=== PATIENT | male | born 1985 | race Caucasian/White ===

== ENCOUNTER 2025-01-15 10:48 | Emergency (ER) | payer OTHER, SELFPAY ==
[2025-01-15 11:09] VITALS: BP 117/62; PULSE 55; RESP 18; TEMP 36.4; O2SAT 100
--- NOTE | 2025-01-15 11:14 | ED_ITS ---
HPI - URI/Sore Throat General Chief Complaint: Upper Respiratory Infection Stated Complaint: sore throat Time Seen by Provider: 01/15/25 11:39 History of Present Illness HPI Narrative: 39-year-old male presented for complaint of sore throat and postnasal drainage. Onset 2 days. Says last night he felt difficulty swallowing and breathing while he was lying in bed. Has not attempted to eat today. Endorses a painful swallow. Denies shortness of breath, wheezing, nausea, vomiting, diarrhea fevers or chills now. His family was sick 2 days prior to his onset. Takes Patty daily. Related Data Home Medications ?Medication ?Instructions ?Recorded ?Confirmed ?Last Taken ?Type fexofenadine 180 mg tablet 180 mg PO DAILY 01/15/25 Unknown History (Patty Allergy) Allergies Allergy/AdvReac Type Severity Reaction Status Date / Time No Known Allergies Allergy Verified 01/15/25 11:30 Review of Systems Review of Systems: CONSTITUTIONAL: Denies body aches, fever, chills, or sweats. EYES: Denies visual changes, redness, or discharge. ENT: reports sore throat rhinorrhea CARDIOVASCULAR: Denies chest pain, palpitations, or edema. RESPIRATORY: Denies dyspnea. GASTROINTESTINAL: Denies abdominal pain, nausea, vomiting, or diarrhea. SKIN: Denies rash NEUROLOGIC: Denies headache Exam Narrative: GENERAL: well-appearing, no acute distress. EYES: conjunctivae clear ENT: Mucous membranes moist. TM pearly boykin with normal light reflex bilaterally; no tragal tenderness. Oropharynx erythematous without lesions. Tonsils not enlarged and without exudate. No drooling, no hoarseness, no trism us, uvula midline. No tripod positioning, hot potato voice, or soft palate swelling. NECK: Supple. No lymphadenopathy CHEST: Clear to auscultation, breath sounds equal. No respiratory distress, speaks in full sentences. HEART: Regular rate and rhythm. No murmur heard. SKIN: Warm, dry, no rash. NEURO: Alert and oriented x3. Course Course Emergency Course: Patient is aware of diagnosis, understands and agrees to treatment plan. Anticipatory guidance given. Patient agrees to follow-up as directed and is aware of reasons to seek care at the emergency department. Portions of this record may have been created with voice recognition software Level of Care: Express Care Visit Vital Signs Vital signs: Vital Signs Temperature 97.5 F L 01/15/25 11:09 Pulse Rate 55 L 01/15/25 11:09 Respiratory Rate 18 01/15/25 11:09 Blood Pressure 117/62 01/15/25 11:09 Pulse Oximetry 100 01/15/25 11:09 Oxygen Delivery Room Air 01/15/25 11:09 Temperature 97.5 F L 01/15/25 11:09 Pulse Rate 55 L 01/15/25 11:09 Respiratory Rate 18 01/15/25 11:09 Blood Pressure 117/62 01/15/25 11:09 Pulse Oximetry 100 01/15/25 11:09 Oxygen Delivery Room Air 01/15/25 11:09 MDM - URI/Sore Throat MDM Narrative Medical decision making narrative: neg strep result reviewed with pt. Advise supportive treatments. Patient is appropriate for outpatient treatment and follow-up. Differential Diagnosis Differential diagnosis: Likely upper respiratory infection, viral infection and pharyngitis Discharge Plan Discharge Clinical Impression: Pharyngitis Patient Disposition: Home Condition: Stable Instructions: Antibiotic Form, Postnasal Drip (DC) Additional Instructions: Rapid strep swab was negative today You will be notified in a few days if the culture comes back positive for strep, and appropriate antibiotics will be called in at that time. if symptoms are due to a viral illness, it is not treated with antibiotics. Viral symptoms can be present for up to 10-14 days. Recommendations: Flonase spray, saline nasal mist, and Zyrtec for sinus congestion Tylenol every 8 hours as needed for pain/fever Soft foods, cool liquids, warm tea. Gargle with warm saltwater twice a day. Chloraseptic spray and throat lozenges. Rest and stay hydrated. --Follow up with your PCP --Go to the ER immediately if you cannot swallow your saliva, trouble breathing/wheezing, throat swelling, pain is persistent and severe Patient Language: Maltese Prescriptions: No Action fexofenadine [Patty Allergy] 180 mg tablet 180 mg PO DAILY Follow-up/Referrals: [place], [Primary Care Provider] - Time of Disposition: 11:47
[2025-01-15 11:41] LABS: EDSTREPNEGPOS1 Negative (Negative)
== END 2025-01-15 12:04 | disposition home or self-care (01) ==
PROVIDERS: Emergency Provider Nurse Practitioner Family
DX: J02.9 Acute pharyngitis, unspecified (principal)
CPT/HCPCS: 87081; 87880; 99203; G0463